=== PATIENT | female | born 1995 | race Caucasian/White ===

== ENCOUNTER 2017-11-22 22:19 | Emergency (ER) | payer SELFPAY ==
--- NOTE | 2017-11-22 23:57 | C.PDOC ---
History Of Present Illness Patient is a 22 y/o female who presents to the ED after passing conception product at home. No heavy active bleeding. Patient complaining of abdominal pain. Time Seen by Provider: 11/22/17 23:56 Chief Complaint (Nursing): Female Genitourinary History Per: Patient History/Exam Limitations: no limitations Onset/Duration Of Symptoms: Hrs Current Symptoms Are (Timing): Still Present Last Menstral Period: 10/05/17 Past Medical History Reviewed: Historical Data, Nursing Documentation, Vital Signs Vital Signs: Last Vital Signs Temp 98.4 F 11/23/17 03:33 Pulse 74 11/23/17 03:33 Resp 18 11/23/17 03:33 BP 104/72 11/23/17 03:33 Pulse Ox 99 11/23/17 03:33 - Medical History PMH: No Chronic Diseases - [facility] Procedures CLOSURE SKIN & SUBCUTANEOUS NEC (04/06/13) Family History: States: No Known Family Hx - Social History Hx Tobacco Use: No Hx Alcohol Use: No Hx Substance Use: No Review Of Systems Except As Marked, All Systems Reviewed And Found Negative. Gastrointestinal: Positive for: Abdominal Pain Genitourinary: Positive for: Other (product of conception passing). Negative for: Vaginal Bleeding (heavy) Physical Exam - Physical Exam Appears: Non-toxic, No Acute Distress Skin: Normal Color, Warm, Dry Head: Atraumatic, Normacephalic Eye(s): bilateral: Normal Inspection, PERRL, EOMI Neck: Normal ROM Chest: Symmetrical Cardiovascular: Rhythm Regular, No Murmur Respiratory: Normal Breath Sounds, No Accessory Muscle Use Gastrointestinal/Abdominal: Tenderness (to epigastric area) Pelvic: No Vaginal Bleeding (heavy active bleeding), Other (Fetus deemed not viable, no heartbeat, not moving. Umbilicus attached, placenta still in utero) Extremity: Normal ROM, No Pedal Edema, No Deformity Neurological/Psych: Oriented x3, Normal Speech ED Course And Treatment - Laboratory Results Result Diagrams: 11/23/17 00:27 11/23/17 00:27 - CT Scan/US US Other Rad Studies (CT/US): Read By Radiologist, Radiology Report Reviewed CT/US Interpretation: FINDINGS: Uterus: No intrauterine gestation is seen. Endometrial stripe is heterogeneous in appearance and is. abnormally thickened , in the cervix and lower uterine segment, where it measures 2.5 cm in AP. dimensions, image 43 of series 1. No definite associated flow/vascularity on color imaging to suggest. retained products of conception. Cervix measures 4.2 in length transvaginally. Right ovary: Within normal limits in appearance. Measures 3.4 x 1.2 x 3.2 cm. Flow seen in the right. ovary on color and Doppler imaging, with no evidence of torsion. Left ovary: Measures 4.2 x 1.8 x 2.5 cm, and contains a 1.9 x 1.7 cm hypoechoic lesion. This lesion. contains diffuse low level echoes, which are mildly heterogeneous in appearance. It most likely. represents a complex cyst, such as a hemorrhagic cyst or endometrioma, but its features are not. definitive. Flow seen in the left ovary on color and Doppler imaging, with no evidence of torsion. Cul-de-sac: No free fluid. IMPRESSION: Abnormally thickened and heterogeneous endometrial stripe, in the cervix and lower uterine. segment. Findings are suspicious for blood products in the endometrial canal, secondary to. the known spontaneous . There is no sonographic evidence for retained products of. conception, however, recommend correlation with beta hCG values, as retained products of. conception are difficult to exclude entirely. Small hypoechoic lesion in the left ovary. This is most likely a complex cyst, but its features. are not definitive. Recommend ultrasound follow-up in 6-12 weeks to document involution of. this lesion. Medical Decision Making Medical Decision Makin:57 Dr. Felicitas Madison OB-PRODUCT APPLICATIONS SCIENTIST notified, and came to see pt in the ED. 00:[address] Madison, and passed placenta. Now pending ultrasound for discharge. Disposition Discussed With : Felicitas Madison Counseled Patient/Family Regarding: Diagnosis - Disposition Referrals: [facility] [Outside] Disposition: HOME/ ROUTINE Disposition Time: 03:38 Condition: STABLE Instructions: Spontaneous Miscarriage (ED) Forms: [facility] (Kinyarwanda) - POA Present On Arrival: None - Clinical Impression Clinical Impression: Complete - Scribe Statement The provider has reviewed the documentation as recorded by the Scribe Alberta Lr Provider Attestation: All medical record entries made by the Scribe were at my direction and personally dictated by me. I have reviewed the chart and agree that the record accurately reflects my personal performance of the history, physical exam, medical decision making, and the department course for this patient. I have also personally directed, reviewed, and agree with the discharge instructions and disposition.
[2017-11-23] MEDS ORDERED: Morphine 4 MG/ML VIAL ONE (00:01)
--- NOTE | 2017-11-23 00:06 | CP.PCM.HP ---
History of Present Illness - History of Present Illness History of Present Illness: CONSULT NOTE :22 y/o LMP ~ 09/2017 reports had a gush of fluid, an dthen severe pain and came to ER. Called by ER to evalate pt as non viable fetus had passed. Upon intial interaction with the patient, she said she did not know she was pergnancy, and has a hx of irreuglar eprieod and has had periods of weight loss and gain. pt reports after the large water leakage started having pain and came to ER and suddenly felt urge to have a bowel movmeent and pushed out a non vialbe fetus.Pt rperots cramping pain every few minutes, dies any fever, chills , nause, vomiting, cp, sob, dizzyness, lightheadness. Upon inital exam with RN and biosolids management technician fetus non viable with enlarged head from placenta. Pt states eh did not know seh was and did not receive any care. 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 LMP 09/2017, irregular PMH: Asthma PSH: Tonseillectomy FHX: non contibutory SHX: denies etoh/tobacco/drugs Present on Admission - Present on Admission Any Indicators Present on Admission: No Review of Systems - Constitutional Constitutional: As Per HPI - Cardiovascular Cardiovascular: As Per HPI - Respiratory Respiratory: As Per HPI - Gastrointestinal Gastrointestinal: As Per HPI - Reproductive: Female Reproductive:Female: As Per HPI - Menstruation Menstruation: As Per HPI Past Patient History - Infectious Disease Hx of Infectious Diseases: None - Past Social History Smoking Status: Never Smoked - PSYCHIATRIC Hx Substance Use: No Meds Allergies/Adverse Reactions: Allergies Allergy/AdvReac Type Severity Reaction Status Date / Time No Known Allergies Allergy Verified 11/22/17 23:32
[2017-11-23 00:30] LABS: BASO % 0.1 % (0.0-2.0); EOS # 0.1 K/uL (0.0-0.7); EOS % 0.2 % (0.0-4.0); HEMOGLOBIN 12.3 g/dL (11.0-16.0); LYMPH # 2.3 K/uL (1.0-4.3); LYMPH % 8.7 % (20.0-40.0); MEAN CELL VOLUME 87.9 fL (81.0-99.0); MEAN CORPUSCULAR HEMOGLOBIN 29.9 pg (27.0-31.0); MEAN PLATELET VOLUME 7.9 fL (7.2-11.7); MONO # 1.6 K/uL (0.0-0.8); NEUT # 22.7 K/uL (1.8-7.0); PLATELET COUNT 292 K/uL (130-400); RBC 4.11 Mil/uL (3.80-5.20); RED CELL DISTRIBUTION WIDTH 12.9 % (11.5-14.5); WHITE BLOOD COUNT 26.7 K/uL (4.8-10.8)
--- NOTE | 2017-11-23 00:32 | CP.PCM.CON ---
History of Present Illness - History of Present Illness History of Present Illness: 22 y/o LMP 09/2017 unknown initally telling er had some watery leakange followed by intesnet abodmina pain, pt came to er and felt liek she had to have a bowel movmenet. pt then passed non viable fetus and engineering specialist technician was called. pt states seh did not know she was pregnnat and di not receive any care and has alwaysa had irreuglar period. pt reports intesnt cramping , small amoubt of bleeidng, no fever, chills ,naseu vlotming cp, sob. Upon intial evation with RN and MD information technology auditor fetus not attached to placenta. fetus appeared abnormal with large head, 4 extremeites. Pt did not want to see or hold fetus and was transfported to pathlogy department. Pt was then was moved ot engineering specialist technician room and staid she had to push in which placenta was removed spontantesoly. 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: deie hx of abnormla pap, fibroids, ovairan cyst, STI, cannot remember name PMH: Jackie PSH: tonseillectomy FHX: non contributoiry HX: negaive etoh/otbaoc/drugs MEDS: none Review of Systems - Cardiovascular Cardiovascular: As Per HPI - Respiratory Respiratory: As Per HPI - Gastrointestinal Gastrointestinal: As Per HPI - Genitourinary Genitourinary: As Per HPI - Reproductive: Female Reproductive:Female: As Per HPI - Menstruation Menstruation: As Per HPI - Musculoskeletal Musculoskeletal: As Per HPI Past Patient History - Infectious Disease Hx of Infectious Diseases: None - Past Social History Smoking Status: Never Smoked - PSYCHIATRIC Hx Substance Use: No Meds Allergies/Adverse Reactions: Allergies Allergy/AdvReac Type Severity Reaction Status Date / Time No Known Allergies Allergy Verified 11/22/17 23:32 - Medications Medications: Current Medications Lactated Ringer's (Lactated Ringer's) 1,000 mls @ 1,000 mls/hr IV .Q1H [place] Stop: 11/23/17 02:14 Oxytocin (Pitocin 20 Units In Lr) 1,000 mls @ 125 mls/hr IV .Q8H [place] PRN Reason: Protocol Physical Exam - Respiratory Exam Respiratory Exam: Clear to Auscultation Bilateral, NORMAL BREATHING PATTERN - Cardiovascular Exam Cardiovascular Exam: REGULAR RHYTHM, +S1 - GI/Abdominal Exam GI & Abdominal Exam: Soft Additional comments: nn tender, no guarding, no rebound tendners, no rigidty Initail exam, placnet from vagina hanging out, pt pushed spotnaoenlty and complete expulstion of placneta biminal exam, goo dhemsotias, fundus fimr. - Extremities Exam Extremities exam: Positive for: normal inspection - Neurological Exam Neurological exam: Alert, CN II-XII Intact, Normal Gait, Oriented x3 Assessment & Plan (1) demise Assessment and Plan: 22 y/o P0 with demise (passed proir to arrival) with intial retained placneta -pt spontaneoulsy passed in ER -recommend observation with bloodwrk, US to r/o retained poc, pitocoin -reocmmend f/u clinic 2 weeks when cleared for discharge Status: Acute (2) Incomplete Status: Acute
[2017-11-23] MEDS: Lactated Ringer's 1,000 ML IV SCH ×2 (00:40→03:52)
[2017-11-23 00:47] LABS: CALCIUM 8.7 mg/dl (8.6-10.4); GFR AFRICAN-AMERICAN > 60; GFR NON-AFRICAN AMERICAN > 60
[2017-11-23 00:49] VITALS: RESP 18
[2017-11-23 01:04] LABS: BANDS 3 % (0-2); EOSINOPHIL 1 % (0-4); LYMPHOCYTE 6 % (20-40); MONOCYTE 4 % (0-10); NEUTROPHIL 86 % (50-75); PLATELET ESTIMATE NORMAL (NORMAL); TOTAL CELLS COUNTED 100
[2017-11-23 01:18] LABS: HEPATITIS B SURFACE AG Negative (NEGATIVE)
[2017-11-23 01:23] LABS: ALB/GLOB RATIO 1.1 (1.0-2.1); ALBUMIN 4.2 g/dL (3.5-5.0); ALT/SGPT 44 U/L (9-52); AST/SGOT 47 U/L (14-36); BLOOD UREA NITROGEN 7 mg/dL (7-17)
--- NOTE | 2017-11-23 02:52 | US ---
EXAM: US Pelvis Complete, Transabdominal US Pelvis, Transvaginal EXAM DATE/TIME: 11/23/2017 12:24 AM CLINICAL HISTORY: 22 years old, female; Pain; Pelvic pain; Additional info: Abd pain S/P intrauterine demise at 20 weeks, R/O retained poc TECHNIQUE: Real-time transabdominal and transvaginal pelvic ultrasound (complete) with image documentation. Transvaginal imaging was used for better evaluation of the endometrium and adnexa. COMPARISON: No relevant prior studies available. FINDINGS: Uterus: No intrauterine gestation is seen. Endometrial stripe is heterogeneous in appearance and is abnormally thickened, in the cervix and lower uterine segment, where it measures 2.5 cm in AP dimensions, image 43 of series 1. No definite associated flow/vascularity on color imaging to suggest retained products of conception. Cervix measures 4.2 in length transvaginally. Right ovary: Within normal limits in appearance. Measures 3.4 x 1.2 x 3.2 cm. Flow seen in the right ovary on color and Doppler imaging, with no evidence of torsion. Left ovary: Measures 4.2 x 1.8 x 2.5 cm, and contains a 1.9 x 1.7 cm hypoechoic lesion. This lesion contains diffuse low level echoes, which are mildly heterogeneous in appearance. It most likely represents a complex cyst, such as a hemorrhagic cyst or endometrioma, but its features are not definitive. Flow seen in the left ovary on color and Doppler imaging, with no evidence of torsion. Cul-de-sac: No free fluid. IMPRESSION: Abnormally thickened and heterogeneous endometrial stripe, in the cervix and lower uterine segment. Findings are suspicious for blood products in the endometrial canal, secondary to the known spontaneous . There is no sonographic evidence for retained products of conception, however, recommend correlation with beta hCG values, as retained products of conception are difficult to exclude entirely. Small hypoechoic lesion in the left ovary. This is most likely a complex cyst, but its features are not definitive. Recommend ultrasound follow-up in 6-12 weeks to document involution of this lesion. See above for remaining findings.
[2017-11-23 03:34] VITALS: BP 104/72; PULSE 74; TEMP 98.4; O2SAT 99
== END 2017-11-23 04:00 | disposition home or self-care (01) ==
LOC: C.ER 22:19
DX: O03.9 Complete or unspecified spontaneous abortion without complication (principal)
CPT/HCPCS: 76830; 76856; 80053; 85025; 86592; 86703; 86850; 86900; 87340; 88305; 96361; 96374; 99285; J2270; J7120